=== PATIENT | female | born 1995 | race Two or more races ===

== ENCOUNTER 2023-01-06 11:32 | Inpatient (IN) | payer OTHER ==
[~2023-01-06] VITALS: Ht 152.4 cm; Wt 83.5 kg
[2023-01-06] MEDS ORDERED: PRENATABS RX T1 EACH PO (13:15)
== END 2023-01-08 14:19 | disposition home or self-care (01) | DRG 807 ==
LOC: LDR 11:32 → OB/GYN 19:53
PROVIDERS: ADMIT Obstetrics & Gynecology; ATTEND Obstetrics & Gynecology
PROC: 10E0XZZ Delivery of Products of Conception, External Approach (ICD-10-PCS; principal; 2023-01-06)
PROC: 4A1HXCZ Monitoring of Products of Conception, Cardiac Rate, External Approach (ICD-10-PCS; 2023-01-06)
DX: O80 Encounter for full-term uncomplicated delivery (principal); Z37.0 Single live birth; Z3A.39 39 weeks gestation of pregnancy; Z20.822 Contact with and (suspected) exposure to COVID-19